=== PATIENT | female | born 1955 | race Caucasian/White ===

== ENCOUNTER 2016-11-25 06:49 | Day surgery (SDC) | payer MEDICAID ==
[~2016-11-25 06:49] MED LIST: ABILIFY30 MG; ABILIFY30 MG PO; ACETAMINOP160 MG/5 M GT; ACID CONTROL20 MG PO; AGGRENOX 25 MG-1 CAP PO; ALEVE220 M1 PO; ALPRAZOLAM0.5 M2 PO; AMBIEN10 MG PO; ANTI-NAUSEA PR; ANTIVERT12.5 MG PO; ASPIR 8181 MG PO; ASPIRIN PO; ATARAX25 MG PO; ATARAX50 MG PO; ATIVAN0.5 MG PO; ATIVAN1 M1 PO; ATIVAN1 MG PO; ATORVASTATIN CA10 MG PO; AUGMENTIN 875-11 TAB PO; BACLOFEN; BACLOFEN PUMP; BACLOFEN10 M1 PO; BACTRIM DS TAB1 EAC1 PO; BACTRIM DS TABL1 TAB PO; BENTYL10 M1 PO; BENTYL10 MG PO; BENZTROPINE ME0.5 MG PO; BISACODYL10 MG RC; BISCOLAX10 MG PR; CARAFATE1 G/10 ML PO; CIPRO500 M2 PO; COL-RITE100 M1 PO; COLACE100 MG PO; COMPAZINE10 M PO; COMPAZINE10 MG PO; COMPAZINE25 MG/SUPP PR; COREG6.25 M1 PO; COZAAR50 M1 PO; CYMBALTA30 MG; CYMBALTA60 MG; CYMBALTA60 MG PO; DEPAKOTE ER250 M1 PO; DOCU LIQUI50 MG/5 ML PO; DOCUSATE SODIU100 M2 PO; DOXYCYCLINE HYC50 M2 PO; FAMOTIDINE40 M1 PO; FAMOTIDINE40 M3 PO; GABAPENTIN; GABAPENTIN100 MG PO; GABAPENTIN300 M1 PO; GABAPENTIN300 MG PO; GABAPENTIN600 MG PO; GABLOFEN IT; GABLOFEN50 MCG/1 M; GAS-X80 MG PO; H PO; HYDROCHLOROTH12.5 MG PO; HYDROXYZINE HCL25 M1 PO; HYDROXYZINE HCL25 MG PO; HYDROXYZINE HCL50 MG PO; IMITREX50 M2 PO; KEFLEX500 M1 PO; KLONOPIN0.5 MG PO; LATUDA20 MG PO; LATUDA40 MG PO; LEVAQUIN750 MG PO; LINZESS145 MC1 PO; LINZESS145 MCG PO; LINZESS72 MCG PO; LIORESAL I IT; LISINOPRIL10 MG PO; LOPRESSOR25 MG/TA6 PO; LOPRESSOR50 MG PO; LORAZEPAM0.5 M1 PO; LOSARTAN POTASS50 M1 PO; LUNESTA2 MG; LUNESTA2 MG PO; MACROBID100 MG/CAP PO; MAGNESIUM CITR296 M1 PO; METOCLOPRAMIDE10 M2 PO; METOPROLOL TART25 MG; METOPROLOL TART25 MG PO; MIRALAX17 G1 PO; MIRALAX17 G2 PO; MIRALAX17 GM PO; MIRAPEX; MIRAPEX0.125 M1 PO; MIRAPEX0.125 MG PO; MIRAPEX0.25 MG; MIRAPEX0.5 M1 PO; MIRAPEX0.5 MG; MIRAPEX0.5 MG PO; MIRAPEX1 M1 PO; MIRAPEX1 MG PO; MIRTAZAPINE7.5 M1 PO; MOBIC7.5 M1 PO; MOTRIN800 MG PO; NAPROSYN500 M1 PO; NAPROXEN500 MG PO; NEURONTIN300 M1 PO; NEURONTIN300 MG; NEURONTIN600 MG PO; NORCO 5/325 TAB1 TAB PO; NORVASC10 MG PO; NORVASC5 M2 PO; NORVASC5 MG PO; OMEPRAZOLE20 M1 PO; OMEPRAZOLE20 M2 PO; OMEPRAZOLE20 M3 PO; OMEPRAZOLE40 M2 PO; ONDANSETRON ODT4 M1 PO; OSMOLITE CAL GT; PANTOPRAZOLE SO40 MG PO; PEPCID40 M1 PO; PHENERGAN12.5 MG PO; PHENERGAN12.5 MG/TA PO; PHENERGAN25 MG PO; PHENERGAN50 MG PO; PLAVIX75 MG PO; PRILOSEC20 MG PO; PRINIVIL20 M1 PO; PROMETHAZINE PR; PROMETHAZINE25 MG PO; PROMETHEGA12.5 MG/SU RC; PROTONIX40 M2 PO; PROTONIX40 MG PO; Q-DRYL25 MG PO; REGLAN10 MG PO; REQUIP0.25 MG PO; REQUIP1 MG PO; REQUIP3 MG PO; RISPERDAL0.5 M1 PO; RISPERIDONE0.25 M1 PO; RISPERIDONE0.5 M1 PO; SENNA-S TABLET1 EAC3 PO; SENNA8.6 M1 PO; SENNA8.6 M3 PO; SENNA8.6 MG PO; SEROQUEL X200 MG/TAB PO; SEROQUEL XR200 MG PO; SEROQUEL100 M2 PO; SEROQUEL300 MG PO; SLEEPING MED PO; STOOL SOFTENER100 M2 PO; STOOL SOFTENER100 MG PO; THROAT SPRAY177 M1 MM; TOPIRAMATE25 M3 PO; TOPROL XL25 MG PO; TRAMADOL HCL50 M2 PO; TRAMADOL HCL50 MG PO; TYLENOL325 MG PO; VENTOLIN HFA18 GM INH; VIBRAMYCIN50 MG/5 M1 PO; VISTARIL25 M1 PO; XANAX0.25 MG PO; ZANTAC150 MG PO; ZOFRAN ODT4 MG PO; ZOFRAN ODT4 MG/UDTAB PO; ZOFRAN4 M1 PO; ZOFRAN4 MG PO; ZYRTEC10 M PO; [UNRECOGNIZED DRUG - OTHER] IT; [UNRECOGNIZED DRUG - OTHER] PO; [UNRECOGNIZED DRUG - OTHER] PR; [UNRECOGNIZED DRUG - OTHER] RC; baclofen pump; heartburn med; quetiapine PO
[2016-11-25 08:07] LABS: BASO % 0.9 % (0-2); EOS % 2.2 % (0-7); EOSINOPHIL ABSOLUTE COUNT 0.1 tho/cmm (0.0-0.7); HCT-HEMATOCRIT 42.4 % (34.0-49.0); HGB-HEMOGLOBIN 14.1 gm/dl (12.0-15.5); IMMATURE GRANULOCYTES ABSOLUTE 0.01 tho/cmm (0-0.03); IMMATURE GRANULOCYTES PERCENT 0.2 % (0-0.3); LYMPH % 36.9 % (20-45); LYMPH ABSOLUTE COUNT 1.7 tho/cmm (0.8-4.5); MCH (MEAN CORPUSCULAR HGB) 31.9 pg (28.0-32.0); MCHC MEAN CORPUSCULAR HGB CONC 33.3 % (32.0-36.0); MCV (MEAN CELL VOLUME) 95.9 fl (82.0-96.0); MEAN PLATELET VOLUME 11.8 cmc (9.4-12.4); MONO % 10.9 % (0-12); MONOCYTE ABSOLUTE COUNT 0.5 tho/cmm (0.0-1.2); NEUTROPHIL ABSOLUTE COUNT 2.2 tho/cmm (1.6-8.0); NEUTROPHIL-AUTOMATED 2.2 tho/cmm (1.6-8.0); NEUTROPHILS % 48.9 % (40-80); PLATELET COUNT 181 tho/cmm (150-450); RED BLOOD COUNT 4.42 mil/cmm (4.00-5.20); RED CELL DISTRIBUTION WIDTH 13.3 % (12.4-16.4); WHITE BLOOD COUNT 4.5 tho/cmm (4.0-10.0)
[2016-11-25 08:10] LABS: ANION GAP 9 mmol/L (0-20); BLOOD UREA NITROGEN 11 mg/dl (6-24); CALCIUM 8.8 mg/dl (8.5-10.5); CARBON DIOXIDE-VENOUS 30 mmol/L (22-32); CHLORIDE 107 mmol/l (96-110); CREATININE 0.58 mg/dl (0.50-1.10); GLUCOSE 96 mg/dL (70-110); POTASSIUM 3.8 mmol/L (3.7-5.1); SODIUM 142 mmol/L (135-145); eGFR VALUE FOR BLACK >90 mL/Min
[2017-03-30] MEDS ORDERED: LEVSIN-SL0.125 MG SL (19:04)
[2017-04-07] MEDS ORDERED: ULTRAM50 M1 PO (09:08)
[2017-04-07] MEDS ORDERED: VISTARIL25 M1 PO (09:12)
[2017-04-07] MEDS ORDERED: NORVASC10 M2 PO (09:24)
[2017-04-07] MEDS ORDERED: PRINIVIL20 M1 PO (09:25)
== END 2016-11-25 10:50 ==
LOC: ENDOS 06:49 → SHSB 06:50 → ENDOS 08:00
PROVIDERS: Anesthesiology
PROC: 0D757ZZ Dilation of Esophagus, Via Natural or Artificial Opening (ICD-10-PCS; principal; 2016-11-25)
DX: K22.8 Other specified diseases of esophagus (principal); Z98.890 Other specified postprocedural states; Z90.49 Acquired absence of other specified parts of digestive tract; Z98.51 Tubal ligation status; Z79.899 Other long term (current) drug therapy; Z88.5 Allergy status to narcotic agent; Z88.6 Allergy status to analgesic agent; Z88.8 Allergy status to other drugs, medicaments and biological substances

== ENCOUNTER 2016-12-17 20:15 | Emergency (ER) | payer MEDICAID ==
[2016-12-17 21:41] LABS: URINE BILIRUBIN NEGATIVE (NEG); URINE BLOOD NEGATIVE (NEG); URINE GLUCOSE (UA) NEGATIVE (NEG); URINE KETONE NEGATIVE (NEG); URINE LEUKOCYTE ESTERASE POSITIVE (NEG); URINE NITRITE NEGATIVE (NEG); URINE PROTEIN NEGATIVE (NEG); URINE SPECIFIC GRAVITY 1.005 (1.003-1.030)
[2016-12-17 21:49] LABS: URINE APPEARANCE CLEAR; URINE COLOR PALE YELLOW
[2016-12-17 22:06] LABS: URINE EPITHELIAL CELLS 0-3 /[HPF] (0-10); URINE RBC 0-1 /[HPF] (0-5); URINE WBC 0-2 /[HPF] (0-5)
[2017-03-30] MEDS ORDERED: LEVSIN-SL0.125 MG SL (19:04)
[2017-04-07] MEDS ORDERED: ULTRAM50 M1 PO (09:08)
[2017-04-07] MEDS ORDERED: VISTARIL25 M1 PO (09:12)
[2017-04-07] MEDS ORDERED: NORVASC10 M2 PO (09:24)
[2017-04-07] MEDS ORDERED: PRINIVIL20 M1 PO (09:25)
== END 2016-12-17 22:46 ==
LOC: EDMED 20:15
PROVIDERS: Nurse Practitioner Family
DX: R10.13 Epigastric pain (principal)

== ENCOUNTER 2017-02-22 20:10 | Emergency (ER) | payer MEDICAID ==
[2017-03-30] MEDS ORDERED: LEVSIN-SL0.125 MG SL (19:04)
[2017-04-07] MEDS ORDERED: ULTRAM50 M1 PO (09:08)
[2017-04-07] MEDS ORDERED: VISTARIL25 M1 PO (09:12)
[2017-04-07] MEDS ORDERED: NORVASC10 M2 PO (09:24)
[2017-04-07] MEDS ORDERED: PRINIVIL20 M1 PO (09:25)
== END 2017-02-22 23:11 ==
LOC: EDMED 20:10
DX: K94.29 Other complications of gastrostomy (principal); L92.8 Other granulomatous disorders of the skin and subcutaneous tissue; I10 Essential (primary) hypertension; F31.9 Bipolar disorder, unspecified

== ENCOUNTER 2017-05-28 03:55 | Emergency (ER) | payer MEDICAID ==
[~2017-05-28] VITALS: Ht 160 cm; Wt 61.0 kg
[~2017-05-28 03:55] MED LIST changes: +LEVSIN-SL0.125 MG SL; +NORVASC10 M2 PO; +ULTRAM50 M1 PO
[2017-05-28] MEDS ORDERED: BACLOFEN10 M1 PO (04:24)
[2017-05-28] MEDS ORDERED: LINZESS145 MC1 PO (04:25)
[2017-05-28] MEDS ORDERED: OSMOLITE 1.5 C237 ML (04:26)
[2017-05-28] MEDS ORDERED: ZOFRAN ODT4 MG PO (05:33)
[2017-05-28] MEDS ORDERED: NEURONTIN600 M1 PO (05:33)
== END 2017-05-28 06:00 ==
LOC: EDMED 03:55
DX: G62.9 Polyneuropathy, unspecified (principal); I10 Essential (primary) hypertension; G40.909 Epilepsy, unspecified, not intractable, without status epilepticus; K21.9 Gastro-esophageal reflux disease without esophagitis; F31.9 Bipolar disorder, unspecified; Z86.73 Personal history of transient ischemic attack (TIA), and cerebral infarction without residual deficits; Z79.899 Other long term (current) drug therapy

== ENCOUNTER 2017-05-28 16:06 | Emergency (ER) | payer SELFPAY ==
[~2017-05-28] VITALS: Ht 160 cm; Wt 62.0 kg
[~2017-05-28 16:06] MED LIST changes: +NEURONTIN600 M1 PO; +OSMOLITE 1.5 C237 ML
[2017-05-28 16:58] LABS: BASO % 0.7 % (0-2); EOS % 1.6 % (0-7); EOSINOPHIL ABSOLUTE COUNT 0.1 tho/cmm (0.0-0.7); HGB-HEMOGLOBIN 14.4 gm/dl (12.0-15.5); IMMATURE GRANULOCYTES ABSOLUTE 0.02 tho/cmm (0-0.03); IMMATURE GRANULOCYTES PERCENT 0.4 % (0-0.3); LYMPH % 29.6 % (20-45); LYMPH ABSOLUTE COUNT 1.7 tho/cmm (0.8-4.5); MCH (MEAN CORPUSCULAR HGB) 30.7 pg (28.0-32.0); MCHC MEAN CORPUSCULAR HGB CONC 34.3 % (32.0-36.0); MCV (MEAN CELL VOLUME) 89.6 fl (82.0-96.0); MEAN PLATELET VOLUME 10.9 cmc (9.4-12.4); MONO % 9.9 % (0-12); MONOCYTE ABSOLUTE COUNT 0.6 tho/cmm (0.0-1.2); NEUTROPHIL ABSOLUTE COUNT 3.3 tho/cmm (1.6-8.0); NEUTROPHIL-AUTOMATED 3.3 tho/cmm (1.6-8.0); NEUTROPHILS % 57.8 % (40-80); PLATELET COUNT 212 tho/cmm (150-450); RED BLOOD COUNT 4.69 mil/cmm (4.00-5.20); RED CELL DISTRIBUTION WIDTH 13.4 % (12.4-16.4); WHITE BLOOD COUNT 5.6 tho/cmm (4.0-10.0)
[2017-05-28 17:10] LABS: ANION GAP 8 mmol/L (0-20); BLOOD UREA NITROGEN 8 mg/dl (6-24); CALCIUM 8.7 mg/dl (8.5-10.5); CARBON DIOXIDE-VENOUS 27 mmol/L (22-32); CHLORIDE 108 mmol/l (96-110); CREATININE 0.65 mg/dl (0.50-1.10); GLUCOSE 110 mg/dL (70-110); POTASSIUM 3.4 mmol/L (3.7-5.1); SODIUM 140 mmol/L (135-145); eGFR VALUE FOR BLACK >90 mL/Min
== END 2017-05-28 18:13 ==
LOC: EDMED 16:06
PROVIDERS: Emergency Medicine
DX: E87.6 Hypokalemia (principal); R53.1 Weakness; I10 Essential (primary) hypertension; G80.9 Cerebral palsy, unspecified; F31.9 Bipolar disorder, unspecified; Z90.49 Acquired absence of other specified parts of digestive tract; Z79.899 Other long term (current) drug therapy
CPT/HCPCS: J7030